=== PATIENT | female | born 2000 | race Two or more races ===

== ENCOUNTER 2024-09-18 11:38 | Outpatient (CLI) | payer OTHER, SELFPAY ==
[2024-09-18 13:29] LABS: Bacterial Vaginosis* Negative (Negative); Candida glab/krus DETECTED (No Detected); Candida species NOT DETECTED (No Detected); Trichomonas vaginalis NOT DETECTED (No Detected)
[2024-09-18 14:05] LABS: Chlamydia DNA Amplified* NOT DETECTED (No Detected); GC DNA Amplified* NOT DETECTED (No Detected)
== END 2024-09-18 11:39 | disposition home or self-care (01) ==
PROVIDERS: Visit Provider Registered Nurse
DX: R05.9 Cough, unspecified (principal); R51.9 Headache, unspecified; R50.9 Fever, unspecified; N63.20 Unspecified lump in the left breast, unspecified quadrant; Z11.3 Encounter for screening for infections with a predominantly sexual mode of transmission; Z12.4 Encounter for screening for malignant neoplasm of cervix
CPT/HCPCS: 81513; 87481; 87491; 87591; 87624; 87625; 87661; 88141; 88142

== ENCOUNTER 2024-10-02 11:13 | Outpatient (CLI) | payer OTHER, SELFPAY ==
--- NOTE | 2024-10-02 11:15 | CRLHL7_ITS ---
For Patients: As a result of the Cures Act, medical imaging exams and procedure reports are released immediately into your electronic medical record. You may view this report before your referring provider. If you have questions, please contact your health care provider. LEFT BREAST ULTRASOUND CLINICAL HISTORY: LEFT breast lump. COMPARISON: None. TECHNIQUE: Real-time ultrasound imaging of LEFT breast with imaging documentation. FINDINGS: Targeted ultrasound performed in the area of concern at 1 o`clock 3 cm from the nipple LEFT breast. In this location, there is a circumscribed macrolobular hypoechoic solid nodule with increased through-transmission measuring 2.2 x 0.9 x 1.3 cm. IMPRESSION: Benign fibroadenoma LEFT breast 1 o`clock 3 cm from the nipple measuring 2.2 x 0.9 x 1.3 cm. RECOMMENDATIONS: Clinical follow-up. Results and recommendations were discussed with the patient at the time of the exam. A lay language report of this examination will be provided to the patient. BI-RADS Category 2: Benign Dictated by Ghassan Del Angel MD @ 10/02/2024 11:52:03 AM /Dictated by: Ghassan Del Angel MD @ 10/02/2024 11:52:00 AM (Electronically Signed)
== END 2024-10-02 11:14 | disposition home or self-care (01) ==
LOC: US 11:13
PROVIDERS: Visit Provider Registered Nurse
DX: N63.20 Unspecified lump in the left breast, unspecified quadrant (principal); D24.2 Benign neoplasm of left breast
CPT/HCPCS: 76642; T1013